=== PATIENT | female | born 1985 ===

== ENCOUNTER 2017-02-17 08:16 | Emergency (ER) | payer MEDICAID ==
[2017-02-17 08:16] VITALS: BMI 27.3
[2017-02-17] MEDS ORDERED: Dexamethasone 4 mg/1 ml IM STA (08:57)
--- NOTE | 2017-02-17 09:29 | C.PDOC ---
History Of Present Illness 31 year old female with no significant PMHx presents to the ED with complaints of sore throat, fever, vomiting, coughing, and bodyaches beginning yesterday. Patient took Advil with minimal relief and was given Tylenol in Triage. Patient denies recent travel, sick contacts, diarrhea, chest pain, shortness of breath, abdominal pain, or other complaints at this time. Time Seen by Provider: 02/17/17 08:33 Chief Complaint (Nursing): ENT Problem History Per: Patient History/Exam Limitations: None Onset/Duration Of Symptoms: Days (1 day) Current Symptoms Are (Timing): Still Present Quality (Mouth/Throat): Swelling Symptoms Have Been: Continuous Anticoagulant/Antiplatlet Use?: No Recent Aspirin Use: Yes (Last Taken) (Advil) Past Medical History Reviewed: Historical Data, Nursing Documentation, Vital Signs Vital Signs: Last Vital Signs Temp 99.7 F H 02/17/17 09:42 Pulse 107 H 02/17/17 09:42 Resp 16 02/17/17 09:42 BP 108/76 02/17/17 09:42 Pulse Ox 98 02/17/17 10:06 - Medical History PMH: Asthma Family History: States: Unknown Family Hx - Social History Hx Tobacco Use: Yes Hx Alcohol Use: Yes (occasional) Hx Substance Use: No - Immunization History Hx Tetanus Toxoid Vaccination: Yes Hx Influenza Vaccination: No Hx Pneumococcal Vaccination: No Review Of Systems Constitutional: Positive for: Fever, Other (generalized bodyaches). Negative for: Chills ENT: Positive for: Throat Pain Cardiovascular: Negative for: Chest Pain, Palpitations Respiratory: Positive for: Cough. Negative for: Shortness of Breath Gastrointestinal: Positive for: Vomiting. Negative for: Abdominal Pain, Diarrhea Musculoskeletal: Negative for: Neck Pain Skin: Negative for: Rash Neurological: Positive for: Headache Physical Exam - Physical Exam Appears: Non-toxic, No Acute Distress Skin: Warm, Dry, No Rash Head: Atraumatic, Normacephalic, No Tenderness Eye(s): bilateral: Normal Inspection, PERRL, EOMI Ear(s): Bilateral: Normal Nose: Normal, No Discharge Oral Mucosa: Moist Throat: Erythema (erythema), Exudate (bilaterally ), No Drooling, No Mass, Other (bilateral tonsilar swelling,non-kissing. no uvula deviation) Neck: Supple Lymphatic: Adenopathy (bilateral cervical adenopathy ) Chest: Symmetrical, No Deformity Cardiovascular: No Murmur, Other (patient is tachycardic ) Respiratory: No Rales, No Rhonchi, No Wheezing, Other (clear to auscultation bilaterally ) Gastrointestinal/Abdominal: Soft, No Tenderness, No Distention, No Guarding, No Rebound Extremity: Normal ROM, No Tenderness Neurological/Psych: Oriented x3, Normal Speech, Normal Cranial Nerves, No Cerebellar Signs, Normal Motor, Normal Sensation Gait: Steady ED Course And Treatment O2 Sat by Pulse Oximetry: 98 (RA) Pulse Ox Interpretation: Normal Progress Note: Rapid Strep and Throat Culture were ordered. Patient was given Decadron and Tylenol. Reassessment Condition: Improved (Fever reduced. Strep and Flu were negative. patient reports feeling mild improvement. She has no difficulty swallowing and speaking clearly. will discharge with Rx for Amoxicillin) Disposition Counseled Patient/Family Regarding: Diagnosis, Need For Followup, Rx Given - Disposition Referrals: Kelly Sullivan MD [Medical Doctor] - Disposition: HOME/ ROUTINE Disposition Time: 09:45 Condition: STABLE Additional Instructions: Your prescription was sent to [facility] pharmacy. Take antibiotic twice daily Take Tylenol or Motrin alternating every 4-6 hours for Fever 100.4F or higher. Rest and drink plenty of fluids to prevent dehydration. May also try lozenges or cepacol spray over the counter. Follow up with your primary medical doctor or clinic in 2-5 days for further evaluation. Return to the emergency department at any time if symptoms persist or worsen. Prescriptions: Amoxicillin [Amoxil 500 mg Cap] 500 mg PO BID #20 cap Instructions: Pharyngitis (ED) Forms: Work/School/Gym Excuse, [facility] (Belarusian) - POA Present On Arrival: None - Clinical Impression Clinical Impression: Pharyngitis - PA / ORAL SURGERY TECHNICIAN / Resident Statement MD/DO has reviewed & agrees with the documentation as recorded. - Scribe Statement The provider has reviewed the documentation as recorded by the Scribe Oralia Sheehan All medical record entries made by the Josueibfan were at my direction and personally dictated by me. I have reviewed the chart and agree that the record accurately reflects my personal performance of the history, physical exam, medical decision making, and the department course for this patient. I have also personally directed, reviewed, and agree with the discharge instructions and disposition.
[2017-02-17 09:44] VITALS: BP 108/76; PULSE 107; RESP 16; TEMP 99.7
[2017-02-17 09:47] VITALS: O2SAT 98
== END 2017-02-17 09:47 | disposition home or self-care (01) ==
LOC: C.ER 08:16
DX: J02.9 Acute pharyngitis, unspecified (principal)
CPT/HCPCS: 87070; 87430; 87804; 96372; 99283; J1100

== ENCOUNTER 2017-04-28 16:32 | Emergency (ER) | payer MEDICAID ==
[2017-04-28 16:32] VITALS: BMI 27.3
[2017-04-28 17:18] VITALS: BP 125/77; PULSE 80; TEMP 97.6; O2SAT 97
[2017-04-28 18:18] LABS: HCG,QUALITATIVE URINE NEGATIVE (NEGATIVE)
[2017-04-28 18:20] LABS: SQUAMOUS EPITHIAL 2 /hpf (0-5); URINE BACTERIA RARE (<OCC); URINE BILIRUBIN NEGATIVE (NEGATIVE); URINE BLOOD 1+ (NEGATIVE); URINE CLARITY Clear (Clear); URINE COLOR Yellow (YELLOW); URINE GLUCOSE (UA) NORMAL (Normal); URINE LEUKOCYTE ESTERASE NEG Leu/uL (Negative); URINE NITRATE NEGATIVE (NEGATIVE); URINE PROTEIN NEGATIVE (NEGATIVE); URINE UROBILINOGEN NORMAL mg/dL (0.2-1.0)
--- NOTE | 2017-04-28 18:34 | C.PDOC ---
History Of Present Illness 31 yo female come in for evaluation of diffuse lower abdominal cramping pain intermittent for past week. LNMP 03/10/17. Pt admits, took test at home with negative results. Otherwise, pt denies fever, chills, N/V, abd. pain, V/D, back pain, UTI sx, vaginal irritation or discharges. Ambulate to ED for evaluation, not in any apparent distress. Time Seen by Provider: 04/28/17 17:25 Chief Complaint (Nursing): Abdominal Pain History Per: Patient Past Medical History Reviewed: Historical Data, Nursing Documentation, Vital Signs Vital Signs: Last Vital Signs Temp 97.6 F 04/28/17 17:13 Pulse 80 04/28/17 17:13 Resp 12 04/28/17 17:13 BP 125/77 04/28/17 17:13 Pulse Ox 97 04/28/17 17:13 - Medical History PMH: Asthma, Sleep Apnea Family History: States: Unknown Family Hx - Social History Hx Tobacco Use: Yes Hx Alcohol Use: Yes (occasional) Hx Substance Use: No - Immunization History Hx Tetanus Toxoid Vaccination: Yes Hx Influenza Vaccination: Yes Hx Pneumococcal Vaccination: No Review Of Systems Except As Marked, All Systems Reviewed And Found Negative. Constitutional: Negative for: Fever, Chills ENT: Negative for: Throat Pain Cardiovascular: Negative for: Chest Pain Respiratory: Negative for: Cough, Shortness of Breath Gastrointestinal: Negative for: Nausea, Vomiting, Diarrhea, Melena, Hematochezia , Hematemesis Genitourinary: Negative for: Dysuria, Frequency, Incontinence, Vaginal Discharge , Vaginal Bleeding Musculoskeletal: Negative for: Neck Pain, Back Pain Skin: Negative for: Rash Neurological: Negative for: Weakness, Numbness, Altered Mental Status Physical Exam - Physical Exam Appears: Well, Non-toxic, No Acute Distress Skin: Normal Color, Warm, Dry, No Rash Eye(s): bilateral: PERRL Nose: No Flaring, No Discharge Oral Mucosa: Moist, No Drooling Throat: No Drooling Neck: Trachea Midline, Supple Cardiovascular: Rhythm Regular Respiratory: No Decreased Breath Sounds, No Accessory Muscle Use, No Stridor, No Wheezing Gastrointestinal/Abdominal: Soft, No Tenderness, No Distention, No Guarding, No Rebound Back: No CVA Tenderness Extremity: Normal ROM, No Deformity, No Swelling Neurological/Psych: Oriented x3, Normal Speech ED Course And Treatment - Laboratory Results Urine POC: Negative O2 Sat by Pulse Oximetry: 97 Pulse Ox Interpretation: Normal Progress Note: On re-eval, pt is afebrile, hemodynamicaly stable. NOn-toxic. ENT: no acute findings. Uvula midline, no edmea. Neck: SUpple Lungs: CTA B/L, BS equal B/L. Abd: benign, (-) guarding, (-) rebound. Back: (-) CVA tenderness. UA results review and appears normal. Preg (-) Pt advised and ref. to F/U with [facility] In 2-3 days for re-eval. return if any new changes. Disposition Counseled Patient/Family Regarding: Studies Performed, Diagnosis, Need For Followup - Disposition [facility]] Disposition Time: 17:55 Condition: STABLE Additional Instructions: FOLLOW UP WITH PMD, [facility] IN 2-3 DAYS FOR RE-EVALUATION. RETURN TO ED IF ANY WORSENING OR NEW CHANGES. Prescriptions: Ibuprofen [Motrin Tab] 400 mg PO Q6 #20 tab Instructions: Abdominal Pain (ED) - Clinical Impression Clinical Impression: Abdominal cramping
[2017-04-28 18:55] VITALS: RESP 18
== END 2017-04-28 18:35 | disposition home or self-care (01) ==
LOC: C.ER 16:32
DX: R10.9 Unspecified abdominal pain (principal); Z87.891 Personal history of nicotine dependence

== ENCOUNTER 2017-09-01 16:12 | Emergency (ER) | payer MEDICAID ==
[2017-09-01 16:12] VITALS: BMI 27.3
[2017-09-01 16:39] VITALS: RESP 18
[2017-09-01 17:09] LABS: BASO # 0.1 K/uL (0.0-0.2); EOS # 0.3 K/uL (0.0-0.7); HEMOGLOBIN 12.5 g/dL (11.0-16.0); LYMPH # 2.3 K/uL (1.0-4.3); LYMPH % 23.2 % (20.0-40.0); MEAN CELL VOLUME 88.5 fL (81.0-99.0); MEAN CORPUSCULAR HEMOGLOBIN 30.2 pg (27.0-31.0); MEAN CORPUSCULAR HGB CONC 34.2 g/dL (33.0-37.0); MEAN PLATELET VOLUME 7.5 fL (7.2-11.7); MONO # 0.7 K/uL (0.0-0.8); MONO % 6.7 % (0.0-10.0); NEUT # 6.4 K/uL (1.8-7.0); NEUT % 66.1 % (50.0-75.0); NRBC % 0.1 % (0.0-2.0); RBC 4.13 Mil/uL (3.80-5.20); RED CELL DISTRIBUTION WIDTH 13.3 % (11.5-14.5); WHITE BLOOD COUNT 9.7 K/uL (4.8-10.8)
[2017-09-01 17:16] LABS: HCG,QUALITATIVE URINE POSITIVE (NEGATIVE)
[2017-09-01 17:22] LABS: ALB/GLOB RATIO 1.2 (1.0-2.1); ALBUMIN 3.8 g/dL (3.5-5.0); ALT/SGPT 26 U/L (9-52); AST/SGOT 25 U/L (14-36); BLOOD UREA NITROGEN 15 mg/dL (7-17); CALCIUM 8.5 mg/dl (8.6-10.4); GFR AFRICAN-AMERICAN > 60; GFR NON-AFRICAN AMERICAN > 60
[2017-09-01 17:28] LABS: SQUAMOUS EPITHIAL 9 /hpf (0-5); URINE BACTERIA FEW (<OCC); URINE BILIRUBIN NEGATIVE (NEGATIVE); URINE BLOOD NEGATIVE (NEGATIVE); URINE CLARITY Hazy (Clear); URINE COLOR Yellow (YELLOW); URINE GLUCOSE (UA) NORMAL (Normal); URINE LEUKOCYTE ESTERASE 3+ Leu/uL (Negative); URINE PROTEIN NEGATIVE (NEGATIVE); URINE UROBILINOGEN NORMAL mg/dL (0.2-1.0)
--- NOTE | 2017-09-01 17:47 | C.PDOC ---
History Of Present Illness 31 year old female presents to ED with complaints of mild lower abdominal cramping pain for 2 days. Patient states she was late with menses and took test which was positive. LMP 07/14/17. A2. Denies any fever, vaginal bleeding, discharge, dysuria or other complaints. Time Seen by Provider: 09/01/17 16:40 Chief Complaint (Nursing): Abdominal Pain History Per: Patient History/Exam Limitations: no limitations Onset/Duration Of Symptoms: Days Severity: Mild Quality Of Discomfort: Cramping Past Medical History Reviewed: Historical Data, Nursing Documentation, Vital Signs Vital Signs: Last Vital Signs Temp 98 F 09/01/17 18:31 Pulse 69 09/01/17 18:31 Resp 18 09/01/17 18:31 BP 126/74 09/01/17 18:31 Pulse Ox 98 09/01/17 18:31 - Medical History PMH: Asthma, Sleep Apnea Surgical History: Tonsillectomy Family History: States: Unknown Family Hx - Social History Hx Tobacco Use: Yes Hx Alcohol Use: Yes (occasional) Hx Substance Use: No - Immunization History Hx Tetanus Toxoid Vaccination: No Hx Influenza Vaccination: Yes Hx Pneumococcal Vaccination: No Review Of Systems Except As Marked, All Systems Reviewed And Found Negative. Cardiovascular: Negative for: Chest Pain, Palpitations Respiratory: Negative for: Cough Gastrointestinal: Positive for: Abdominal Pain. Negative for: Constipation Genitourinary: Negative for: Dysuria, Vaginal Bleeding Neurological: Negative for: Headache Physical Exam - Physical Exam Appears: Non-toxic, No Acute Distress Skin: Warm, Dry, No Rash Head: Atraumatic, Normacephalic Eye(s): bilateral: Normal Inspection, EOMI Neck: Normal ROM Chest: Symmetrical Cardiovascular: Rhythm Regular, No Murmur Respiratory: Normal Breath Sounds, No Rhonchi, No Wheezing Gastrointestinal/Abdominal: Bowel Sounds, Soft, No Tenderness, No Distention, No Guarding Extremity: Bilateral: Atraumatic, Normal ROM Neurological/Psych: Oriented x3, Normal Speech ED Course And Treatment - Laboratory Results Result Diagrams: 09/01/17 17:04 09/01/17 17:04 O2 Sat by Pulse Oximetry: 100 - CT Scan/US transvaginal Other Rad Studies (CT/US): Read By Radiologist, Radiology Report Reviewed CT/US Interpretation: Accession No. : [id number]. Patient Name / ID : STEVEN MOONEY / [id number]. Exam Date : 09/01/2017 17:34:47 ( Approved ). Study Comment : Sex / Age : F / 31Y. Creator : Juanjose Tsang MD. Dictator : Juanjose Tsang MD. [employer] Specialist : Cytotechnologist/Cytology Supervisor : Juanjose Tsang MD. Approver2 : Report Date : 09/01/2017 18:23:33. My Comment : . This report is currently processing and HAS NOT BEEN OFFICIALLY SIGNED BY THE PHYSICIAN - ESTIMATED TIME OF APPROVAL IS 09/01/2017 18:29. HISTORY: with abdominal pain. LMP 07/14/2017. Beta HCG 1081.60. COMPARISON: None available. TECHNIQUE: TTransabdominal, transvaginal. Real -time technique with 2D, duplex and color Doppler. FINDINGS: UTERUS: Measures 5.6 x 5.8 x 9.2 cm. Normal in size, heterogeneous echo characteristics. Fundal sub serosal fibroid 0.8 x 1.1 x 1.5 cm. ENDOMETRIUM: Measures 12.8 mm in diameter. Small saclike structure within the endometrium 2.4 x 2.7 x 4.0 likely early gestational sac. No yolk sac or pole is identified. CERVIX: No cervical abnormality identified. Closed cervix measures 3.4 cm. RIGHT OVARY: Measures 2.7 x 2.4 x 3.0 cm. No solid mass. Normal flow. Right adnexal mass/complex cyst 1.6 x 1.9 cm likely hemorrhagic or debris laden cyst. LEFT OVARY: Measures 1.8 x 3.4 x 2.6 cm. No solid mass. Normal flow. FREE FLUID: Trace free fluid identified in the pelvis/cul de sac. OTHER FINDINGS: None. IMPRESSION: Well- formed gestational sac without yolk sac or pole likely early intrauterine products of conception. Medical Decision Making Medical Decision Making: Impression: patient with pain r.o ectopic Plan: * Labs * UA * US TV Progress: [place] [facility] [place] shows gestational sac Patient reevaluated and remained comfortable in no distress and denies any pain during ED evaluation. I discussed results of labs and US. Patient stable for discharge and to follow up with follow up specialist Disposition Counseled Patient/Family Regarding: Diagnosis, Need For Followup - Disposition [facility]] Disposition: HOME/ ROUTINE Disposition Time: 18:22 Condition: STABLE Additional Instructions: Your results show you are It is important that you follow up with follow up specialist and start taking vitamins Instructions: - The First Month Forms: [employer] (Spanish) - POA Present On Arrival: None - Clinical Impression Clinical Impression: Abdominal pain in
--- NOTE | 2017-09-01 18:25 | US ---
HISTORY: with abdominal pain. LMP 07/14/2017. Beta HCG 1081.60 COMPARISON: None available. TECHNIQUE: TTransabdominal, transvaginal. Real -time technique with 2D, duplex and color Doppler. FINDINGS: UTERUS: Measures 5.6 x 5.8 x 9.2 cm. Normal in size, heterogeneous echo characteristics. Fundal sub serosal fibroid 0.8 x 1.1 x 1.5 cm ENDOMETRIUM: Measures 12.8 mm in diameter. Small saclike structure within the endometrium 2.4 x 2.7 x 4.0 likely early gestational sac. No yolk sac or pole is identified CERVIX: No cervical abnormality identified. Closed cervix measures 3.4 cm RIGHT OVARY: Measures 2.7 x 2.4 x 3.0 cm. No solid mass. Normal flow. Right adnexal mass/complex cyst 1.6 x 1.9 cm likely hemorrhagic or debris laden cyst. LEFT OVARY: Measures 1.8 x 3.4 x 2.6 cm. No solid mass. Normal flow. FREE FLUID: Trace free fluid identified in the pelvis/cul de sac. OTHER FINDINGS: None. IMPRESSION: Well-formed gestational sac without yolk sac or pole likely early intrauterine products of conception.
[2017-09-01 18:32] VITALS: BP 126/74; PULSE 69; TEMP 98
[2017-09-01 18:34] VITALS: O2SAT 100
== END 2017-09-01 18:31 | disposition home or self-care (01) ==
LOC: C.ER 16:12
DX: O26.891 Other specified pregnancy related conditions, first trimester (principal); Z3A.00 Weeks of gestation of pregnancy not specified; R10.30 Lower abdominal pain, unspecified

== ENCOUNTER 2018-05-09 01:43 | Emergency (ER) | payer MEDICAID ==
[2018-05-09 01:43] VITALS: BMI 27.3
[2018-05-09 01:52] VITALS: O2SAT 98
--- NOTE | 2018-05-09 01:53 | C.PDOC ---
Time Seen by Provider: 05/09/18 01:53 Chief Complaint (Nursing): Abdominal Pain History Per: Patient History/Exam Limitations: no limitations Onset/Duration Of Symptoms: Days Current Symptoms Are (Timing): Still Present Context: Other Severity: Moderate Pain Scale Rating Of: 6 Location Of Pain/Discomfort: Diffuse Quality Of Discomfort: Sharp, Cramping Associated Symptoms: denies: Fever, Chills Exacerbating Factors: None Alleviating Factors: None Last Bowel Movement: Days Ago Recent travel outside of the [place]: No Abnormal Vaginal Bleeding: No Past Medical History Reviewed: Historical Data, Nursing Documentation, Vital Signs Vital Signs: Last Vital Signs Temp 98.0 F 05/09/18 01:49 Pulse 68 05/09/18 01:49 Resp 16 05/09/18 01:49 BP 153/92 H 05/09/18 01:49 Pulse Ox 98 05/09/18 01:49 - Medical History PMH: Asthma, Sleep Apnea Surgical History: Tonsillectomy Family History: States: No Known Family Hx - Social History Hx Tobacco Use: Yes Hx Alcohol Use: Yes (occasional) Hx Substance Use: No - Immunization History Hx Tetanus Toxoid Vaccination: No Hx Influenza Vaccination: Yes Hx Pneumococcal Vaccination: No Review Of Systems Constitutional: Negative for: Fever, Chills Gastrointestinal: Positive for: Abdominal Pain. Negative for: Nausea, Vomiting Genitourinary: Negative for: Dysuria Musculoskeletal: Negative for: Back Pain Skin: Negative for: Rash Neurological: Negative for: Weakness Psych: Negative for: Anxiety Physical Exam - Physical Exam Appears: Non-toxic, In Acute Distress Skin: Warm, Dry Oral Mucosa: Moist Chest: Symmetrical Cardiovascular: Rhythm Regular Respiratory: No Rales, No Rhonchi, No Wheezing Gastrointestinal/Abdominal: Soft, Tenderness, Distention Back: No CVA Tenderness Neurological/Psych: Oriented x3 Gait: Steady ED Course And Treatment - Laboratory Results Result Diagrams: 05/09/18 02:36 O2 Sat by Pulse Oximetry: 98 Pulse Ox Interpretation: Normal Progress Note: I've disimpacted the patient. ABout 1000gm of hard stool removed from the rectal vault. Pt feels better Medical Decision Making Medical Decision Making: Upon provider reevaluation patient is feeling better, is medically stable, and requires no further treatment in the ED at this time. Patient will be discharged home with Rx for miralax . Counseling was provided and all questions were answered regarding diagnosis and need for follow up with the referred clinic. There is agreement to discharge plan. Return if symptoms persist or worsen. Disposition Counseled Patient/Family Regarding: Studies Performed, Diagnosis, Need For Foll owup, Rx Given - Disposition Disposition: HOME/ ROUTINE Disposition Time: 01:53 Condition: FAIR Additional Instructions: Please return if symptoms recur. May also use colace daily Prescriptions: Polyethylene Glycol 3350 [Miralax] 17 gm PO DAILY #270 ml Instructions: Fecal Impaction (DC), Constipation, Adult (DC) Forms: [facility] Reviewed (Greenlandic) - Clinical Impression Clinical Impression: Constipation
[2018-05-09] MEDS ORDERED: Sodium Chloride 0.9% 1,000 ML IV ONE (01:55)
[2018-05-09] MEDS ORDERED: Sodium Chloride 0.9% 1,000 ML ONE (02:21)
[2018-05-09 02:44] LABS: BASO % 0.2 % (0.0-2.0); EOS # 0.1 K/uL (0.0-0.7); EOS % 0.8 % (0.0-4.0); HEMOGLOBIN 10.8 g/dL (11.0-16.0); LYMPH # 0.9 K/uL (1.0-4.3); LYMPH % 7.6 % (20.0-40.0); MEAN CELL VOLUME 79.3 fL (81.0-99.0); MEAN CORPUSCULAR HGB CONC 31.5 g/dL (33.0-37.0); MEAN PLATELET VOLUME 7.9 fL (7.2-11.7); MONO # 0.4 K/uL (0.0-0.8); MONO % 3.4 % (0.0-10.0); NEUT # 10.6 K/uL (1.8-7.0); PLATELET COUNT 407 K/uL (130-400); RED CELL DISTRIBUTION WIDTH 15.1 % (11.5-14.5); WHITE BLOOD COUNT 12.1 K/uL (4.8-10.8)
[2018-05-09 02:53] LABS: PROTHROMBIN TIME 10.7 SECONDS (9.7-12.2)
[2018-05-09] MEDS ORDERED: Lidocaine 2% Jelly (Uro-Jet) ONE (02:53)
[2018-05-09 03:16] LABS: ALB/GLOB RATIO 1.2 (1.0-2.1); ALBUMIN 3.7 g/dL (3.5-5.0); ALT/SGPT 29 U/L (9-52); AST/SGOT 60 U/L (14-36); BLOOD UREA NITROGEN 20 mg/dL (7-17); CALCIUM 8.2 mg/dl (8.6-10.4); GFR NON-AFRICAN AMERICAN > 60; LIPASE 148 U/L (23-300)
[2018-05-09 03:21] LABS: ANISOCYTOSIS SLIGHT; LYMPHOCYTE 9 % (20-40); MONOCYTE 6 % (0-10); NEUTROPHIL 85 % (50-75); PLATELET ESTIMATE NORMAL (NORMAL); POIKILOCYTOSIS SLIGHT; TOTAL CELLS COUNTED 100
[2018-05-09 04:09] VITALS: BP 130/82; PULSE 82; RESP 22; TEMP 98.2
== END 2018-05-09 04:08 | disposition home or self-care (01) ==
LOC: C.ER 01:43
DX: K59.00 Constipation, unspecified (principal)
CPT/HCPCS: 80053; 83690; 85025; 85610; 85730; 96374; 99283; J1885; J7030